=== PATIENT | female | born 1985 | race African-American/Black ===

== ENCOUNTER 2017-02-22 17:11 | Emergency (ER) | payer BC, OTHER ==
[~2017-02-22] VITALS: Ht 182.9 cm; Wt 117.9 kg
[2017-02-22 17:29] VITALS: BP 144/78
--- NOTE | 2017-02-22 17:42 | PHYS DOC ---
Past Medical History Past Medical History: No Pertinent History Past Surgical History: No Surgical History Alcohol Use: None Drug Use: None Adult General Chief Complaint Chief Complaint: LOWER BACK PAIN OR INJURY HPI HPI Patient is a 31 year old female with no significant medical history who presents today with moderate left low back pain radiating to the left lower extremity that began yesterday after she fell at work at [employer] she states the pain is worse on ambulation and sitting on the left side of the buttocks. Patient denies any loss of consciousness. Denies any numbness or tingling to bilateral lower extremities. Denies any loss of bowel bladder function. She states she was seen at [facility] yesterday in the ED and they did x-rays of her left hip which were negative. She would like x -rays of the lumbar spine. Review of Systems Review of Systems Constitutional: Denies fever or chills [] GI: Denies abdominal pain, nausea, vomiting, bloody stools or diarrhea [] : Denies dysuria or hematuria [] Musculoskeletal: back pain Integument: Denies rash or skin lesions [] Allergies Allergies Allergies Coded Allergies Type Severity Reaction Last Updated Verified penicillin Allergy Mild hives 01/29/15 No Physical Exam Physical Exam Constitutional: Well developed, well nourished, no acute distress, non-toxic appearance. [] Abdomen: Bowel sounds normal, soft, no tenderness, no masses, no pulsatile masses. [] Skin: Warm, dry, no erythema, no rash. [] Back: Diffuse paraspinal muscle tenderness to the left lumbar spine, no midline lumbar spine tenderness, no CVA tenderness. [] Extremities: No tenderness, no cyanosis, no clubbing, ROM intact, no edema. [] Neurologic: Alert and oriented X 3, normal motor function, normal sensory function, no focal deficits noted. [] Psychologic: Affect normal, judgement normal, mood normal. [] Current Patient Data Vital Signs Vital Signs Date Time Temp Pulse Resp B/P (MAP) Pulse Ox O2 Delivery O2 Flow Rate FiO2 02/22/17 17:29 98.2 86 18 100 Room Air 98.2 Lab Values Laboratory Tests Test 02/22/17 16:52 POC Urine HCG, Qualitative Hcg negative (Negative) EKG EKG [] Radiology/Procedures Radiology/Procedures [] Course & Med Decision Making Course & Med Decision Making Pertinent Labs and Imaging studies reviewed. (See chart for details) Patient is in the ED with low back pain after falling yesterday. She was seen at [facility] where she states they did x-rays of the left hip but not lumbar spine. She would like lumbar spine x-rays. Lumbar spine xrays [address] Mauricio were negative for any acute findings. Patient has lumbar contusion. Discharged with cyclobenzaprine, naproxen and Medrol Dosepak. Heat recommended to the lumbar spine. Follow-up with PCP in 1-2 weeks. Provided return precautions and discharged in stable condition. Dragon Disclaimer Dragon Disclaimer This electronic medical record was generated, in whole or in part, using a voice recognition dictation system. Departure Departure Impression: Primary Impression: Fall from standing Additional Impression: Lumbar contusion Disposition: HOME, SELF-CARE Condition: STABLE Referrals: NON,STAFF (PCP) follow up with a doctor from the list provided or your work doctor next week Patient Instructions: Contusion, [id number], Fall Prevention and Home Safety Additional Instructions: You were seen for lumbar contusion after falling. Your x-rays were negative for any acute findings in the emergency room. You can apply heat or ice to the lumbar spine. Take the prescribed medicines as ordered, do not drive on the [employer] or operate machinery. Follow-up with a doctor from the list provided or your workman comp doctor next week. Scripts Methylprednisolone (MEDROL) 4 Mg Tab.ds.pk 1 PKG PO UD, #1 PKG Prov: GERMÁN TONG APRN 02/22/17 Naproxen (NAPROXEN) 500 Mg Tablet.dr 1 TAB PO BID, #60 TAB 2 Refills Prov: GERMÁN TONG APRN 02/22/17 Cyclobenzaprine Hcl (CYCLOBENZAPRINE HCL) 10 Mg Tablet 1 TAB PO TID, #30 TAB Prov: GERMÁN TONG APRN 02/22/17 Problem Qualifiers Primary Impression: Fall from standing Encounter type: subsequent encounter Qualified Codes: W19.XXXD - Unspecified fall, subsequent encounter Additional Impression: Lumbar contusion Encounter type: subsequent encounter Qualified Codes: S30.0XXD - Contusion of lower back and pelvis, subsequent encounter GERMÁN TONG APRN Feb 22, 2017 17:42
[2017-02-22] MEDS ORDERED: METH4TAB2 PO (18:34)
[2017-02-22] MEDS ORDERED: CYCL10TA2 PO (18:34)
[2017-02-22] MEDS ORDERED: NAPR500T8 PO (18:34)
[2017-02-22] MEDS ORDERED: NAPROXEN 500 MG TABLET PO STA (18:51)
[2017-02-22] MEDS ORDERED: HYDROcodone/APAP 5/325MG 1 TAB TABLET PO ONE (19:00)
[2017-02-22] MEDS ORDERED: CYCLOBENZAPRINE 10 MG TABLET. PO ONE (19:00)
--- NOTE | 2017-02-23 08:28 | RAD ---
LUMBAR SPINE 2-3V History:Trauma, fall 2 days ago, low back pain radiating superiorly Comparison: None Findings:3 views of the lumbar spine are submitted. Lumbar vertebral body stature and AP alignment are maintained. No acute fracture is identified by radiographs. There is degenerative disc disease and spondylosis at T11-T12. Impression: 1.No acute abnormality is identified.
== END 2017-02-22 19:02 | disposition home or self-care (01) ==
LOC: ER 17:11
DX: S30.0XXD Contusion of lower back and pelvis, subsequent encounter (principal); Z88.0 Allergy status to penicillin; W18.39XA Other fall on same level, initial encounter; Y93.89 Activity, other specified; Y99.8 Other external cause status; Y92.89 Other specified places as the place of occurrence of the external cause
CPT/HCPCS: 72100; 81025; 99284

== ENCOUNTER 2020-04-10 18:02 | Emergency (ER) | payer OTHER ==
[~2020-04-10 18:02] MED LIST: CYCL10TA2 PO; METH4TAB2 PO; NAPR500T8 PO
== END 2020-04-10 19:05 | disposition left against medical advice (07) ==
LOC: ER 18:02
DX: R52 Pain, unspecified (principal); Z53.21 Procedure and treatment not carried out due to patient leaving prior to being seen by health care provider